=== PATIENT | female | born 1960 | race Asian ===

== ENCOUNTER 2024-04-24 15:46 | Emergency (ER) | payer OTHER ==
[~2024-04-24] VITALS: Ht 165.1 cm; Wt 63.6 kg
[2024-04-24 15:58] VITALS: BP 109/67; PULSE 68; RESP 18; TEMP 97.6; O2SAT 98
[2024-04-24] MEDS ORDERED: MIDAZOLAM 2 MG/2 ML VIAL ONE ×2 (18:59→19:07)
[2024-04-24] MEDS: MIDAZOLAM 5 MG/5 ML VIAL IV ONE ×2 (19:04→19:55)
[2024-04-24] MEDS: NACL 0.9% 1,000 ML IV ONE (20:06)
[2024-04-24 20:36] VITALS: BP 104/62; PULSE 62; RESP 18; TEMP 97.6; O2SAT 99
== END 2024-04-24 20:36 | disposition home or self-care (01) ==
LOC: MED 15:46
DX: T18.128A Food in esophagus causing other injury, initial encounter (principal); W44.F3XA Food entering into or through a natural orifice, initial encounter; Y93.89 Activity, other specified; Y92.89 Other specified places as the place of occurrence of the external cause; Y99.8 Other external cause status
CPT/HCPCS: 43235; 70490; 96361; 96374; 96376; 99291; J2250; J7030